=== PATIENT | female | born 1975 | race Caucasian/White ===

== ENCOUNTER 2023-10-19 11:11 | Outpatient (AMB) | payer BC, SELFPAY ==
[2023-10-19 11:16] VITALS: BP 116/70; PULSE 70; O2SAT 99; BMI 41.7
--- NOTE | 2023-10-19 11:16 | MHC.PC.OV ---
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 Patient reports she has numbing with right thigh. Patient reports she would like to discuss labs. Waiter/Waitress Club Required: No Accompanied by: Self / Same As Patient Allergies No Known Allergies Allergy (Verified 10/19/23 11:24) Medication List - Last Reconciled 10/19/23 by Maria E Whittaker MD levothyroxine 125 mcg PO DAILY sertraline 100 mg PO DAILY tirzepatide (weight loss) (Zepbound) 5 mg (0.5 mL) subcut QWEEK Tobacco use date assessed: 10/19/23 Dental Screening Dental Screen Date: 10/19/23 Did you have a dental visit in the last 12 months?: Yes Did you have a dental problem in the last 6 months where you did not have access to dental care?: No Was dental information given to patient?: Patient has dentist HPI HPI Comments History of Present Illness Details The patient is a 48-year-old female with a past medical history of type 2 diabetes,MDD, headaches, hypothyroid, PCOS obesity presenting to follow-up Type 2 diabetes: Last A1C in diabetic range 06/2023. LDL 121. The patient had previously lost over 50 lb with Trulicity however then the medication. Being covered by insurance. Attempted to get majora covered. That was prior to patient being diabetic. Unfortunately she gained all the weight back and now has an A1c in the diabetic range. MDD: Stable on Zoloft. Headache frequency and severity has been stable PCOS: She had successful ongoing weight loss GLP. She was on Trulicity but had ongoing issues with coverage and high. Hypothyroid: Stable on levothyroxine Mammogram-UTD ROS CONSTITUTIONAL: Denies weight loss, fever and chills. HEENT: Denies changes in vision and hearing. RESPIRATORY: Denies SOB and cough. CV: Denies palpitations and CP GI: Denies abdominal pain, nausea, vomiting and diarrhea. : Denies dysuria and urinary frequency. MSK: Denies new myalgia and joint pain. SKIN: Denies rash and pruritus. NEUROLOGICAL: Denies headache PSYCHIATRIC: Denies recent changes in mood. PHYSICAL EXAM: GENERAL: Alert and oriented x 3. NAD EYES: EOMI. Anicteric. HENT: Moist mucous membranes. No scleral icterus. No cervical lymphadenopathy. LUNGS: Clear to auscultation bilaterally. CARDIOVASCULAR: Regular rate and rhythm. No murmur. No JVD. ABDOMEN: Soft, non-tender +bs EXTREMITIES: No edema. Non-tender. SKIN: No rashes or lesions. Warm. NEUROLOGIC: No focal neurological deficits. CN II-XII grossly intact PSYCHIATRIC: Cooperative. Appropriate mood and affect [facility] Medical History Polycystic ovaries Abnormal liver function test Hypothyroid Hemorrhagic cyst of ovary Headache DVT, lower extremity Depression Surgical History No pertinent past surgical history Family History Maternal Grandmother Alzheimer dementia Maternal Grandfather Alzheimer dementia Father Diabetes Social History Household Members: None Housing: House Are you a primary hearing healthcare practitioner to a significant other at home: No Do you presently have visiting nurse or other home services: No 75 years or older and lives alone: No Alcohol intake: current Alcohol intake frequency: a few times a month Patient Tobacco Use Status: Never used Tobacco e-Cigarette/Vaping Use: Never Used service: No Current occupational status: employed Cognitive needs: No Hearing needs: No Vision needs: No Physical exam (Primary Care) Vital Signs: Last Vital Signs Pulse 70 10/19/23 11:16 BP 116/70 10/19/23 11:16 Pulse Ox 99 10/19/23 11:16 Oxygen Delivery Method Room Air 10/19/23 11:16 BMI result Body Mass Index 41.7 Tobacco/Smoking Status: Tobacco use Status Tobacco use date assessed 10/19/23 10/19/23 11:27 Patient Tobacco Use Status Never used Tobacco 10/19/23 11:27 e-Cigarette/Vaping Use Never Used 10/19/23 11:27 Assessment and Plan Assessment & Plan (1) MDD (major depressive disorder), recurrent, in partial remission: Code(s): F33.41 - Major depressive disorder, recurrent, in partial remission Plan: Stable on zoloft (2) Hyperlipidemia: Code(s): E78.5 - Hyperlipidemia, unspecified Qualifiers: Hyperlipidemia type: mixed hyperlipidemia Qualified Code(s): E78.2 - Mixed hyperlipidemia Plan: Efforts toward weight loss. GLP ordered in setting of diabetes and weight gain (3) Type 2 diabetes mellitus: Code(s): E11.9 - Type 2 diabetes mellitus without complications Qualifiers: Diabetes mellitus director long term care insulin use: without fci use Diabetes mellitus complication status: with hyperglycemia Qualified Code(s): E11.65 - Type 2 diabetes mellitus with hyperglycemia Plan: Start GLP. Did really well with this medication Plan Labs in 3 months. Return in six months Orders: Orders Hemoglobin A1c Today E11.9 - Type 2 diabetes mellitus without complications Comprehensive Met. Panel Today E11.9 - Type 2 diabetes mellitus without complications Lipid Panel Today E11.9 - Type 2 diabetes mellitus without complications Microalbumin, Random (w Creat) Today E11.9 - Type 2 diabetes mellitus without complications US soft tiss head and/or neck Today E04.1 - Nontoxic single thyroid nodule Medications: New ondansetron HCl 4 mg PO Q8H PRN 60 tabs 3RF nausea and vomiting sertraline 100 mg PO DAILY 30 tabs 0RF levothyroxine 125 mcg PO DAILY 90 days 90 caps 3RF tirzepatide (Mounjaro) 5 mg (0.5 mL) subcut QWEEK 6 mL 3RF Coding Level of Care Code Est Pt Level 5 (12845) Diagnoses MDD (major depressive disorder), recurrent, in partial remission F33.41 Mixed hyperlipidemia E78.2 Hyperlipidemia type: mixed hyperlipidemia Type 2 diabetes mellitus with hyperglycemia, without long-term current use of insulin E11.65 Diabetes mellitus fci insulin use: without director long term care use Diabetes mellitus complication status: with hyperglycemia
== END 2023-10-19 12:09 | disposition home or self-care (01) ==
PROVIDERS: Visit Provider Internal Medicine
DX: E11.65 Type 2 diabetes mellitus with hyperglycemia (principal); F33.41 Major depressive disorder, recurrent, in partial remission; E78.2 Mixed hyperlipidemia
CPT/HCPCS: 99214

== ENCOUNTER 2023-11-10 14:57 | Outpatient (REF) | payer BC, SELFPAY ==
[2023-11-10 15:59] LABS: Estimated Average Glucose 97 mg/dL
[2023-11-10 16:15] LABS: Alanine Aminotransferase 13 U/L (0-31); Albumin Level 3.9 g/dL (3.5-5.0); Alkaline Phosphatase 58 U/L (39-117); Anion Gap 11 (12-20); Aspartate Amino Transferase 12 U/L (5-31); Bilirubin Total 0.3 mg/dL (0.0-1.0); Blood Urea Nitrogen 16 mg/dL (9-16); Calcium 9.6 mg/dL (8.4-10.2); Carbon Dioxide 26 mmol/L (22-29); Chloride 104 mmol/L (96-108); Cholesterol 246 mg/dL (<200); Estimated Glomerular Filt Rate > 60; Glucose Random 78 mg/dL (60-115); HDL Cholesterol 48 mg/dL (>40); LDL Cholesterol Calculated 122 mg/dL (<100); Sodium 137 mmol/L (135-145); Total Protein 7.2 g/dL (6.5-8.0); Triglycerides 384 mg/dL (<150)
[2023-11-10 16:59] LABS: Microalbum/Creatinine Ratio Ur 4.2 ug/mg cr (<30)
== END 2023-11-10 14:58 | disposition home or self-care (01) ==
LOC: HO.LAB 14:57
PROVIDERS: PCP Internal Medicine; Visit Provider Internal Medicine
DX: E11.9 Type 2 diabetes mellitus without complications (principal)
CPT/HCPCS: 36415; 80053; 80061; 82043; 82570; 83036

== ENCOUNTER 2024-01-31 14:43 | Outpatient (REF) | payer BC, SELFPAY ==
[2024-01-31 16:03] LABS: Estimated Average Glucose 97 mg/dL; Hemoglobin A1C 102.8035 umol/L; Total Hemoglobin (HGBA1C) 3276.8183 umol/L
[2024-01-31 16:38] LABS: Anion Gap 11 (12-20); Blood Urea Nitrogen 14 mg/dL (9-16); Calcium 9.7 mg/dL (8.4-10.2); Carbon Dioxide 29 mmol/L (22-29); Chloride 103 mmol/L (96-108); Estimated Glomerular Filt Rate > 60; Glucose Random 73 mg/dL (60-115); Potassium 3.6 mmol/L (3.3-5.1); Sodium 139 mmol/L (135-145)
== END 2024-01-31 14:44 | disposition home or self-care (01) ==
LOC: HO.LAB 14:43
PROVIDERS: PCP Internal Medicine; Visit Provider Internal Medicine
DX: E28.2 Polycystic ovarian syndrome (principal); R73.09 Other abnormal glucose
CPT/HCPCS: 36415; 80048; 83036

== ENCOUNTER 2024-09-28 08:24 | Outpatient (AMB) | payer BC, SELFPAY ==
--- NOTE | 2024-09-28 08:32 | MHC.PC.OV ---
Vital Signs 09/28/24 08:38 Height 5 ft 4 in Weight 244 lb BMI 41.9 BP 112/70 Blood Pressure Location Rt brachial Position Sitting Pulse 77 Pulse Source Pulse Oximeter Temp 97.8 F Temp Source Temporal Artery Scan Pulse Oximetry (%) 97 Oxygen Delivery Method Room Air Intake Visit Reasons: CPE Intake Note: Heather presents in the office today for her annual physical. Patient has outstanding labs. Allergies No Known Allergies Allergy (Verified 09/28/24 08:35) Tobacco use date assessed: 09/28/24 Dental Screening Dental Screen Date: 09/28/24 Did you have a dental visit in the last 12 months?: Yes Did you have a dental problem in the last 6 months where you did not have access to dental care?: No Was dental information given to patient?: Patient has dentist HPI HPI Comments History of Present Illness Details 49-year-old female with a past medical history of impaired fasting glucose, thyroid nodule, hyperlipidemia, hypothyroid, major depression and polycystic ovaries presents for physical exam. Her current medications include sertraline and levothyroxine. She is compliant with the medicines. Her insurance stopped covering GLP 1, and she gained weight back. BMI 41.9. No known allergies to medicines. She is following a low carbohydrate low sugar diet and never drinks alcohol excessively. Admits she does need to exercise more. She has pending orders for blood work. She will schedule an systems eng appointment. Refer to Gastroenterology for colonoscopy. Mammogram ordered. She sees [facility] for skin exams. Denies history of skin malignancy. ROS: Constitutional: No unexplained weight loss, fever, chills, fatigue or night sweats. Eyes: No vision changes, blurry vision, double vision, eye pain, eye redness, eye discharge. ENT: No hearing loss, sneezing, congestion, runny nose or sore throat. Respiratory: No shortness of breath, cough or sputum production. Cardiovascular: No chest pain, chest pressure or chest discomfort. No palpitations or pedal edema. Gastrointestinal: No anorexia, nausea, vomiting or diarrhea. No abdominal pain or blood in stool. Genitourinary: No dysuria, hematuria, urinary frequency. Neurologic: No headache, dizziness, syncope, unilateral weakness, ataxia, numbness or tingling in the extremities. Musculoskeletal: No muscle pain, back pain, joint pain or swelling. Hematologic/Lymphatics: No bleeding or bruising. No painful lymph nodes. Skin: No rash . Endocrine: No cold or heat intolerance. No polyuria or polydipsia. Psychiatric: No SI/HI. Physical exam: Constitutional: Alert, in no distress. Head: Normocephalic. Eyes: Pupils are equal, round and reactive to light. Extraocular muscles intact. Ear, Nose and Throat: Canals clear. TMs normal. Normal nasal mucosa. No nasal discharge. No oral lesions. Neck: Supple, Full range of motion. No lymphadenopathy. No palpable thyroid masses. Respiratory: Clear to auscultation. Cardiovascular: S1 S2 regular. No murmurs. No carotid bruits. Gastrointestinal: Abdomen soft, non-tender, non-distended. Normal bowel sounds. No palpable masses. Neurologic: No focal neurological deficits. Symmetric patellar reflexes. Moves all extremities spontaneously. Sensation intact bilaterally. Skin: No rashes Musculoskeletal: No gross deformities. Normal range of motion. Extremities: Warm and well perfused. No clubbing, cyanosis or edema. Intact peripheral pulses bilaterally. Psychiatric: Normal mood and affect [facility] Medical History (Updated 09/28/24 @ 09:09 by JEROME Chiu) Routine physical examination Polycystic ovaries Abnormal liver function test Hypothyroid Hemorrhagic cyst of ovary Headache DVT, lower extremity Depression Surgical History No pertinent past surgical history Family History (Updated 09/28/24 @ 08:38 by Blanche Patel MA) Maternal Grandmother Alzheimer dementia Maternal Grandfather Alzheimer dementia Father Diabetes Social History (Updated 09/28/24 @ 08:38 by Blanche Patel MA) Household Members: None Housing: House Are you a primary small animal caretaker to a significant other at home: No Do you presently have visiting nurse or other home services: No 75 years or older and lives alone: No Alcohol intake: current Alcohol intake frequency: a few times a month Patient Tobacco Use Status: Never used Tobacco e-Cigarette/Vaping Use: Never Used Second Hand Smoke Exposure: No Use of substances other than those prescribed or required for medical reasons: No service: No Current occupational status: employed Cognitive needs: No Hearing needs: No Vision needs: No Questionnaire PHQ-9 Over the last 2 weeks, how often have you been bothered by any of the following problems? 1. Little interest or pleasure in doing things: not at all 2. Feeling down, depressed, or hopeless: not at all 3. Trouble falling or staying asleep, or sleeping too much: several days 4. Feeling tired or having little energy: several days 5. Poor appetite or overeating: several days 6. Feeling bad about yourself - or that you are a failure or have let yourself or your family down: not at all 7. Trouble concentrating on things, such as reading the newspaper or watching television: not at all 8. Moving or speaking so slowly that other people could have noticed. Or the opposite - being so fidgety or restless that you have been moving around a lot more than usual: not at all 9. Thoughts that you would be better off or of hurting yourself in some way: not at all Total score: 3 Depression Screening Interpretation: Negative Depression Screening Done: Yes 30673 - PHQ-9 Billing: Yes Source: Developed by Drs. Nilson Mccann, Brooke Barton, Uche Bajwa and colleagues, with an educational gladis from [employer]. Thrive Questionnaire Date Thrive assessed: 09/28/24 I am a: Patient What is your living situation today?: I have a steady place to live Within the past 12 months, did the food you bought not last and you didn't have the money to get more?: Never true Within the past 12 months, did you worry whether your food would run out before you got money to buy more?: Never true Do you have trouble paying for medicines?: No Do you have trouble getting transportation to medical appointments?: No Do you have trouble paying your heating and electricity bill?: No Do you have trouble taking care of your child, family member or friend?: No Do you have trouble with day-to-day activities such as bathing, preparing meals, shopping, managing finances, etc.?: No Are you currently unemployed and looking for a job?: No Are you interested in more education?: Yes Please select the resources that you would like help with: Education Currently or been in a relationship where the following occur: No concerns reported THRIVE Score: 0 AUDIT C Alcohol Use Questionnaire (AUDIT-C) 1. How often do you have a drink containing alcohol?: 2-3 times a week 2. How many drinks containing alcohol do you have on a typical day when you are drinking?: 1 or 2 3. How often do you have six or more drinks on one occasion?: Never Total Score: 3 MAMI-7 AMB Questionnaire MAMI-7 Date MAMI - 7 assessed: 09/28/24 Feeling nervous, anxious, or on edge: 0 = Not at all Not being able to stop or control worryin = Not at all Worrying too much about different things: 0 = Not at all Trouble relaxin = Not at all Being so restless that it is hard to sit still: 0 = Not at all Becoming easily annoyed or irritable: 1 = Several days Feeling afraid as if something awful might happen: 0 = Not at all Total MAMI-7 score (0-4 normal; 5-9 mild; 10-14 moderate; 15-21 severe): 1 Source: Developed by Drs. Nilson Mccann, Brooke Barton, Uche Bajwa and colleagues, with an educational gladis from [employer]. Physical exam (Primary Care) Vital Signs: Last Vital Signs Temp 97.8 F 09/28/24 08:38 Pulse 77 09/28/24 08:38 BP 112/70 09/28/24 08:38 Pulse Ox 97 09/28/24 08:38 Oxygen Delivery Method Room Air 09/28/24 08:38 BMI result Body Mass Index 41.9 Tobacco/Smoking Status: Tobacco use Status Tobacco use date assessed 09/28/24 09/28/24 08:34 Patient Tobacco Use Status Never used Tobacco 09/28/24 08:38 e-Cigarette/Vaping Use Never Used 09/28/24 08:38 PHQ-9: PHQ-9 Score PHQ-9: Total score 3 09/28/24 08:34 Depression Screening Interpretation: Negative Thrive Assessment: Date of Thrive Assessment Date Thrive assessed 09/28/24 09/28/24 08:34 Currently or been in a relationship where the following occur: No concerns reported Coding Level of Care Code Est Pt Prev Care 40-64y(65085) Diagnoses Hypothyroid E03.9 Thyroid nodule E04.1 Obesity, Class III, BMI 40-49.9 (morbid obesity) E66.01 Impaired glucose metabolism R73.09 MDD (major depressive disorder), recurrent, in partial remission F33.41 Routine physical examination Z00.00 Additional Codes PHQ-9 - 02386 - PHQ-9 Billing: Yes ([id number]) Assessment & Plan Assessment & Plan (1) Hypothyroid: Code(s): E03.9 - Hypothyroidism, unspecified Category: Medical Plan: Check TSH. Continue levothyroxine. (2) Thyroid nodule: Code(s): E04.1 - Nontoxic single thyroid nodule Category: Medical Plan: Thyroid ultrasound ordered. (3) Obesity, Class III, BMI 40-49.9 (morbid obesity): Code(s): E66.01 - Morbid (severe) obesity due to excess calories Category: Medical Plan: Lifestyle modifications reviewed. Given history of PCOS and insulin resistance trial of metformin extended release 500 mg daily. Side effects reviewed. (4) Impaired glucose metabolism: Code(s): R73.09 - Other abnormal glucose Category: Medical Plan: See above. Check A1c. (5) MDD (major depressive disorder), recurrent, in partial remission: Code(s): F33.41 - Major depressive disorder, recurrent, in partial remission Category: Medical Plan: Continue sertraline. (6) Routine physical examination: Code(s): Z00.00 - Encounter for general adult medical examination without abnormal findings Category: Medical Plan: Patient is seen today for a routine physical. As part of this visit we reviewed the following issues, which are considered and essential part of preventative health in this age group: - Breast Cancer screening - Annual Shop Tailor Apprentice exam - Screening for colon cancer - Blood pressure screening annually - Cholesterol screening - Osteoporosis prevention including calcium/vitamin D intake, weight bearing exercise & smoking cessation - Nutritional and exercise counseling - Counseling of injury prevention including fire prevention, smoke alarms and seat belt usage - Screening for depression - Education about skin cancer - Recommendations about immunizations - Recommendation of an eye exam - Screening for substance abuse Plan Follow up in 8 weeks for a medication check. Orders: Orders US thyroid Today E04.1 - Nontoxic single thyroid nodule MM screening mammo BI Today Z12.31 - Encounter for screening mammogram for malignant neoplasm of breast Referrals Gastroenterology Referral Z12.11 - Encounter for screening for malignant neoplasm of colon Medications: New metformin ER 500 mg PO DAILY 90 tabs 0RF Refilled levothyroxine 125 mcg PO DAILY 90 tabs 3RF
[2024-09-28 08:38] VITALS: BP 112/70; PULSE 77; TEMP 36.6; O2SAT 97; BMI 41.9
== END 2024-09-28 09:09 | disposition home or self-care (01) ==
LOC: HO.HMCFM 08:30
PROVIDERS: PCP Internal Medicine; Visit Provider Physician Assistant Medical
DX: Z00.00 Encounter for general adult medical examination without abnormal findings (principal); E66.01 Morbid (severe) obesity due to excess calories; Z68.41 Body mass index [BMI] 40.0-44.9, adult; E03.9 Hypothyroidism, unspecified; E04.1 Nontoxic single thyroid nodule; R73.09 Other abnormal glucose; F33.41 Major depressive disorder, recurrent, in partial remission

== ENCOUNTER → 2024-09-28 08:24 | Outpatient (BNVA) | payer BC, SELFPAY | PROVIDERS: PCP Internal Medicine; Visit Provider Physician Assistant Medical | DX: Z00.00 Encounter for general adult medical examination without abnormal findings (principal); E03.9 Hypothyroidism, unspecified; E04.1 Nontoxic single thyroid nodule; E66.01 Morbid (severe) obesity due to excess calories; Z68.41 Body mass index [BMI] 40.0-44.9, adult; R73.09 Other abnormal glucose; F33.41 Major depressive disorder, recurrent, in partial remission; E28.2 Polycystic ovarian syndrome; Z79.899 Other long term (current) drug therapy; Z13.30 Encounter for screening examination for mental health and behavioral disorders, unspecified; Z13.31 Encounter for screening for depression | CPT/HCPCS: 96127 ==

== ENCOUNTER 2024-09-28 09:19 | Outpatient (REF) | payer BC, SELFPAY ==
[2024-09-28 11:01] LABS: MANUAL DIFF FLAG NO
[2024-09-28 11:04] LABS: Basophils Absolute Auto 0.1 X10*3/uL (0.0-0.2); Basophils Percent Auto 0.6 % (0-2); Eosinophils Absolute Auto 0.2 X10*3/uL (0.0-0.4); Eosinophils Percent Auto 2.1 % (0-4); Hematocrit 40.5 % (37.0-47.0); Hemoglobin 13.8 g/dl (12.0-16.0); Imm Gran Abs Auto 0.04 X10*3/uL (0.00-0.03); Imm Gran Pct Auto 0.5 % (0.0-0.4); Lymphocytes Absolute Auto 2.4 X10*3/uL (1.2-4.9); Lymphocytes Percent Auto 28.4 % (20-40); Mean Corpuscular HGB Conc 34.1 g/dl (31.0-35.0); Mean Corpuscular Hemoglobin 30.4 pg (27.0-33.0); Mean Corpuscular Volume 89.2 fL (80.0-98.0); Mean Platelet Volume 10.5 fL (9.4-12.3); Monocytes Absolute Auto 0.7 X10*3/uL (0.1-1.2); Monocytes Percent Auto 7.7 % (2-11); Neutrophils Absolute Auto 5.2 x10*3/uL (2.0-8.3); Neutrophils Percent Auto 60.7 % (45-73); Platelet Count 335 X10*3/uL (160-400); Red Blood Count 4.54 X10*6/uL (4.20-5.50); Red Cell Distribution Width 12.9 % (11.0-16.0); White Blood Count 8.6 X10*3/uL (4.8-10.8)
[2024-09-28 11:12] LABS: Estimated Average Glucose 105 mg/dL; Hemoglobin A1c % 5.3 % (<6.0); Total Hemoglobin (HGBA1C) 3699.6148 umol/L
[2024-09-28 11:48] LABS: Alanine Aminotransferase 20 U/L (0-31); Albumin Level 4.2 g/dL (3.5-5.0); Alkaline Phosphatase 66 U/L (39-117); Anion Gap 10 (12-20); Aspartate Amino Transferase 19 U/L (5-31); Bilirubin Total 0.3 mg/dL (0.0-1.0); Blood Urea Nitrogen 14 mg/dL (9-16); Calcium 9.7 mg/dL (8.4-10.2); Carbon Dioxide 22 mmol/L (22-29); Chloride 109 mmol/L (96-108); Cholesterol 255 mg/dL (<200); Estimated Glomerular Filt Rate > 60; Glucose Fasting 93 mg/dL (60-99); HDL Cholesterol 52 mg/dL (>40); LDL Cholesterol Calculated 142 mg/dL (<100); Potassium 4.2 mmol/L (3.3-5.1); Sodium 137 mmol/L (135-145); Total Protein 7.5 g/dL (6.5-8.0); Triglycerides 307 mg/dL (<150)
[2024-09-28 12:01] LABS: Creatinine Urine 134.41 mg/dL; Microalbumin Urine < 5.0 mg/L
[2024-09-28 12:07] LABS: TSH reflex Free T4 6.08 uIU/mL (0.32-4.0)
[2024-09-28 12:39] LABS: Free T4 (Free Thyroxine) 1.01 ng/dL (0.71-1.85)
== END 2024-09-28 09:20 | disposition home or self-care (01) ==
LOC: HO.WFDLDS 09:19
PROVIDERS: Visit Provider Physician Assistant
DX: E66.01 Morbid (severe) obesity due to excess calories (principal); R73.09 Other abnormal glucose; E03.9 Hypothyroidism, unspecified; E78.2 Mixed hyperlipidemia; R73.01 Impaired fasting glucose
CPT/HCPCS: 36415; 80053; 80061; 82043; 82570; 83036; 84439; 84443; 85025

== ENCOUNTER 2024-10-17 12:58 | Outpatient (REF) | payer BC, SELFPAY ==
--- NOTE | ~2024-10-17 | US_ITS ---
EXAMINATION: US THYROID HISTORY: E04.1 - Nontoxic single thyroid nodule TECHNIQUE: Real-time grayscale ultrasound imaging was performed and images were reviewed. COMPARISON: There are no prior studies available for comparison. FINDINGS: SIZE: The right thyroid lobe measures 4.7 x 1.9 x 1.6 cm. The left thyroid lobe measures 3.8 x 1.5 x 1.1 cm. The isthmus measures 5 mm. FLOW: Flow to the gland is normal. ECHOGENICITY: The echotexture of the gland is heterogeneous. NODULES: A single discrete nodule is noted as described below: Nodule #: 1 Location: Lower pole of the right thyroid lobe measuring 10 x 12 x 11 mm. Shape: Taller than wide (3 points) Margins: Smooth (0 points) Echotexture: Hypoechoic (2 points) Composition: Mostly solid (2 points) Calcifications: None (0 points) Total points: 7 TIRADS: TR5: Highly suspicious. US/US thyroid IMPRESSION: Highly suspicious nodule at the lower pole of the right thyroid lobe as described above. According to ACR TI-RADS guidelines below, ultrasound-guided fine-needle aspiration is recommended. ACR TI-RADS Guidelines TR1 (0 points): Benign, No follow-up or biopsy required TR2 (2 points): Not Suspicious, No biopsy or follow up indicated TR3 (3 points): Mildly Suspicious, FNA if >= 2.5 cm, Follow if >= 1.5 cm TR4 (4-6 points): Moderately Suspicious, FNA if >= 1.5 cm, Follow if >= 1.0 cm TR5 (>=7 points): Highly Suspicious, FNA if >= 1.0 cm, Follow if >= 0.5 cm Electronically signed by: Nilson Morrison MD 10/17/2024 01:48 PM EDT
== END 2024-10-17 12:59 | disposition home or self-care (01) ==
LOC: HO.US 12:58
PROVIDERS: PCP Internal Medicine; Visit Provider Physician Assistant Medical
DX: E04.1 Nontoxic single thyroid nodule (principal)
CPT/HCPCS: 76536

== ENCOUNTER → 2024-10-17 12:59 | Outpatient (BNV) | payer BC, SELFPAY | PROVIDERS: PCP Internal Medicine; Visit Provider Radiology Diagnostic Radiology | DX: E04.1 Nontoxic single thyroid nodule (principal) | CPT/HCPCS: 76536 ==

== ENCOUNTER 2024-11-01 14:05 | Outpatient (AMB) | payer BC, SELFPAY ==
[2024-11-01 14:13] VITALS: BP 114/72; PULSE 87; O2SAT 96; BMI 42.5
--- NOTE | 2024-11-01 14:13 | MHC.OFFVIS ---
Vital Signs 11/01/24 14:13 Height 5 ft 4 in Weight 247 lb 12.793 oz BMI 42.5 BP 114/72 Blood Pressure Location Lt brachial Position Sitting Pulse 87 Pulse Source Pulse Oximeter Pulse Oximetry (%) 96 Oxygen Delivery Method Room Air Intake Visit Reasons: Nontoxic single thyroid nodule Intake Note: New patient present today for Nontoxic single thyroid nodule. Clinical Appeals Reviewer Required: No Accompanied by: Self / Same As Patient Allergies No Known Allergies Allergy (Verified 11/01/24 14:18) Medication List - Last Reconciled 11/01/24 by Jo Ann Morales MD levothyroxine (Synthroid) 137 mcg PO DAILY metformin ER 500 mg PO DAILY sertraline 100 mg PO DAILY HPI Comments Details: 49-year-old female coming in today to establish care for solitary right-sided thyroid nodule. Also has a history of hypothyroidism. Diagnosed 2020, has never had a biopsy. This was diagnosed at [facility]. PCP was following. Hypothyroidism diagnosed in 30s. Levothyroxine 137 mcg daily , takes on an empty stomach , but waits usually 20 to 30 mins for breakfast Was increased from 125 mcg daily whihc she was on for sometime up until September 2024 when TSH was 6.08 on 09/28/24 Ultrasound thyroid 10/17/2024: I reviewed the images myself which showed a right lower pole 1.2 cm solid hypoechoic taller than wide TR 5 category nodule. Meets criteria for FNA. Otherwise her gland is heterogenous with normal vascularity. Patient currently denies heat or cold intolerance, hair loss, palpitation, anxiety, weight changes, mood changes, low energy, changes in appearance of eyes or vision changes, tremors, increased diaphoresis or dry skin. ? Some intermittent diarrhea and constipation with metformin Periods regular, LMP : due to have one now Patient denies any difficulty swallowing, pain on swallowing or voice changes or difficulty breathing. Patient denies any history of childhood neck radiation. Denies having ever used lithium, amiodarone or biotin supplements. Patient denies any family history of thyroid cancer. Paternal grandfather had hypothyroidism. 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 COMPARISON: There are no prior studies available for comparison. FINDINGS: SIZE: The right thyroid lobe measures 4.7 x 1.9 x 1.6 cm. The left thyroid lobe measures 3.8 x 1.5 x 1.1 cm. The isthmus measures 5 mm. FLOW: Flow to the gland is normal. ECHOGENICITY: The echotexture of the gland is heterogeneous. NODULES: A single discrete nodule is noted as described below: Nodule #: 1 Location: Lower pole of the right thyroid lobe measuring 10 x 12 x 11 mm. Shape: Taller than wide (3 points) Margins: Smooth (0 points) Echotexture: Hypoechoic (2 points) Composition: Mostly solid (2 points) Calcifications: None (0 points) Total points: 7 TIRADS: TR5: Highly suspicious. US/US thyroid IMPRESSION: Highly suspicious nodule at the lower pole of the right thyroid lobe as described above. According to ACR TI-RADS guidelines below, ultrasound-guided fine-needle aspiration is recommended. [facility] Medical History (Updated 09/28/24 @ 09:09 by JEROME Chiu) Routine physical examination Polycystic ovaries Abnormal liver function test Hypothyroid Hemorrhagic cyst of ovary Headache DVT, lower extremity Depression Surgical History No pertinent past surgical history Family History Maternal Grandmother Alzheimer dementia Maternal Grandfather Alzheimer dementia Father Diabetes Social History Household Members: None Housing: House Are you a primary career services manager to a significant other at home: No Do you presently have visiting nurse or other home services: No 75 years or older and lives alone: No Alcohol intake: current Alcohol intake frequency: a few times a month Patient Tobacco Use Status: Never used Tobacco e-Cigarette/Vaping Use: Never Used Second Hand Smoke Exposure: No service: No Current occupational status: employed Cognitive needs: No Hearing needs: No Vision needs: No Physical Exam Vital Signs: Last Vital Signs Pulse 87 11/01/24 14:13 BP 114/72 11/01/24 14:13 Pulse Ox 96 11/01/24 14:13 Oxygen Delivery Method Room Air 11/01/24 14:13 BMI result Body Mass Index 42.5 Assessment & Plan Assessment & Plan (1) Thyroid nodule: Code(s): E04.1 - Nontoxic single thyroid nodule Category: Medical Plan: 49-year-old female coming in today for initial evaluation of solitary thyroid nodule. This was initially diagnosed in 2020 per patient, no FNA biopsy done as it was too close to her carotid. No compressive symptoms. Ultrasound thyroid 10/17/2024: I reviewed the images myself which showed a right lower pole 1.2 cm solid hypoechoic taller than wide TR 5 category nodule. Meets criteria for FNA. Otherwise her gland is heterogenous with normal vascularity. I explained that it is common to have thyroid nodules. About 95% of the time these nodules are benign. However if the nodule is > 1 cm in size or suspicious on ultrasound then a fine need aspiration biopsy is recommended. We discussed that a FNAB involves 4-5 passes with a small gauge needle and material obtained is sent off for cytology.If the cytopathology is benign then the nodule will be followed annually with repeat ultrasounds. However if it is suspicious or malignant, we will need to discuss further management. Indeterminate cytology can be further investigated with repeat FNA, genetic testing or empiric lobectomy. Malignant cytology is managed with either lobectomy or total thyroidectomy. We discussed briefly that thyroid cancer is, in most patients, an indolent disease that does not affect mortality. We will arrange for FNA of the right lower pole 1.2 cm thyroid nodule at next available opening and patient will follow up with me in clinic thereafter for results and further decision making. She also does have history of hypothyroidism, PCP's managing. Dose of levothyroxine was recently increased in September from 125 mcg daily to 137 mcg daily. Patient will have repeat blood work in 6 weeks. Plan: -scheduled for FNA of the right lower pole 1.2 cm thyroid nodule and a follow up 2 weeks after to discuss results Plan I spent 45 minutes in reviewing the record, seeing the patient and documenting in the medical record. Orders: Orders US biopsy thyroid Today E04.1 - Nontoxic single thyroid nodule Coding Level of Care Code New Pt Level 4 (46029) Diagnoses Thyroid nodule E04.1 Time Spent (min) 45
--- OUTSIDE RECORDS SUMMARY | 2024-11-01 14:49 | XMS_ITS ---
Author Name Zach Rodriguez Address Unknown Organization [facility] Care Team Providers Care Brine Well Operator Name Role Phone Unavailable Primary Care Physician Unavailab le History Of Present Illness No Data Medications Medication Generic Name RxNorm Strength Strength Unit Route Dose Dose Form Frequency Date Started Date Ended Status Indication Sig metronidazo le metronid azole 265615 0.75 % Topica l gel 02/04/20 24 active Appl y BID to face for arnel cea main elkin nce levothyroxi ne levothyr oxine 375484 125 mcg Oral table t active ondansetron ondanset jacob Oral active sertraline sertrali ne Oral active Wegovy semaglut shoaib (weight loss) Subcut aneous active active Problems Problem Code Type Status Date of Diagnosis Da te of Resolution Patient encounter status (finding) 383892308(SN OMED) Diagnosis active 10/27/2024 Patient encounter status (finding) 495555375(SN OMED) Diagnosis active 08/25/2024 Patient encounter status (finding) 093792666(SN OMED) Diagnosis active 06/23/2024 Patient encounter status (finding) 766416452(SN OMED) Diagnosis active 05/19/2024 Patient encounter status (finding) 757820639(SN OMED) Diagnosis active 03/24/2024 Patient encounter status (finding) 522388238(SN OMED) Diagnosis active 02/25/2024 Rosacea (disorder) 489407388(SN OMED) Diagnosis active 02/04/2024 Melanocytic nevus of trunk (disorder) 795508053(SN OMED) Diagnosis active 02/04/2024 Seborrheic keratosis (disorder) 853931741(SN OMED) Diagnosis active 02/04/2024 Hemangioma of skin and subcutaneous tissue (disorder) 174572130(SN OMED) Diagnosis active 02/04/2024 Disorder of pigmentation (disorder) 953526755(SN OMED) Diagnosis active 02/04/2024 Hypertrophic condition of skin (disorder) 71866649(SNO MED) Diagnosis active 02/04/2024 Patient encounter status (finding) 413637523(SN OMED) Diagnosis active 02/04/2024 Patient encounter status (finding) 821679445(SN OMED) Diagnosis active 10/05/2023 History of clinical finding in subject (situation) 097543821(SN OMED) Problem active Results No data Encounters Service provided at [facility], [address] [place] [phone]. Office phone number is [phone]. Office fax number is [phone]. Encounter Diagnosis Location Date / Time Type Cosmetic (Z41.9) [facility] 10/27/2024 18:00:00 [facility] Reason For Referral No data Procedures Procedure Date Documentation of past medical history (p rocedure) Documentation of past medical history (p rocedure) Review Of Systems No Data Assessment 1.CosmeticFacial: face; Exfoliation Type - enzyme; Massage - facial massage and hand massage; Treatment Type - Facial; Treatment Serum - Vitamin C; Mask Type - hydrojelly; Extraction - open comedones and milia; Lymphatic Drainage - face; Extraction Method - extractor; Sahni (Use numbers only, no special characters or $) - 75; LED Light - red. Plan of Care Code Detail Instructions 555377 metronidazole 0.75 % topical gel Apply BID to face for rosacea maintenance Instructions No Data Social History Code Activity Start Date End Date [id number] (SNOMED) Never smoker Sex female Sexual orientation Unspecified Gender identity Unspecified Vital Signs No data
== END 2024-11-01 15:01 | disposition home or self-care (01) ==
LOC: HO.ENCR 14:06
PROVIDERS: PCP Internal Medicine; Visit Provider Student in an Organized Health Care Education/Training Program
DX: E04.1 Nontoxic single thyroid nodule (principal)
CPT/HCPCS: 99204

== ENCOUNTER 2024-11-15 15:03 | Outpatient (REF) | payer BC, SELFPAY ==
--- OUTSIDE RECORDS SUMMARY | 2024-11-15 15:33 | XMS_ITS | Encounter Summary ---
Author Organization [facility] Address [address] [place] [address] Care Team Providers Care Hooker Up Name Role Phone Maria E Mcarthur MD Primary Care Provider Cris Gasca, Pcp Primary Care Provider Froylan montes Encounter Details Date Type Department Care Team Description 02/15/2020 Orders Only Medicine/Pediatrics - [address] [id number] Maria E Mcarthur MD Social History Tobacco Use Types Packs/Day Years Used Date Smoking Tobacco: Never Smokeless Tobacco: Never Alcohol Use Standard Drinks/Week Comments Yes 0 (1 standard drink = 0.6 oz pur e alcohol) 1-2x/mo Alcohol Habits Answer Date Recorded How often do you have a drink containing alcohol ? 2-3 times a week 12/07/2019 How many drinks containing a lcohol do you have on a typical day when you are drinking? 1 or 2 12/07/2019 How often do you have six or more drinks on one occasion? Never 12/07/2019 Sex Assigned at Date Recorded Not on file COVID-19 Exposure Response Date Recorded In the last month, have you been in contact with someone who was confirmed or suspected to have Coronavirus / COVID-19? Unable to assess 02/14/2020 10:37 AM EST documented as of this encounter Plan of Treatment Not on file documented as of this encounter Visit Diagnoses Not on filedocumented in this encounter Care Teams Hooker Up Relationship Specialty Start Date End Date Maria E Mcarthur MD PCP - General Internal Medicine 11/20/19 07/22/20 Campos, Pcp PCP - General Internal Medicine 07/23/20 documented as of this encounter
== END 2024-11-15 15:04 | disposition home or self-care (01) ==
LOC: HO.MAMMO 15:03
PROVIDERS: PCP Internal Medicine; Visit Provider Physician Assistant Medical
DX: Z12.31 Encounter for screening mammogram for malignant neoplasm of breast (principal)
CPT/HCPCS: 77063; 77067

== ENCOUNTER → 2024-11-15 15:15 | Outpatient (BNV) | payer BC, SELFPAY | PROVIDERS: PCP Internal Medicine; Visit Provider Radiology Body Imaging | DX: Z12.31 Encounter for screening mammogram for malignant neoplasm of breast (principal) | CPT/HCPCS: 77063; 77067 ==

== ENCOUNTER 2024-11-22 07:56 | Outpatient (REF) | payer BC, SELFPAY ==
--- NOTE | 2024-11-22 08:38 | PM.PROC ---
Brief Operative Note Date of procedure: 11/22/24 Pre-op diagnosis: right lower pole 1.2 cm thyroid nodule FNA biopsy Post-op diagnosis: same Procedure: THYROID FINE NEEDLE ASPIRATION PROCEDURE NOTE ? PROCEDURE PERFORMED: Ultrasound-guided FNA of thyroid nodule ? OPERATORS: Dr. Jo Ann Morales ? INDICATION: right lower pole 1.2 cm thyroid nodule; FNA performed to assess for malignancy ? DESCRIPTION OF PROCEDURE: The indications for FNA (to assess for malignancy) were reviewed with the patient in detail. Potential complications (e.g., bleeding, infection, damage to local structures, absence of clear diagnosis after FNA) were reviewed. Alternatives to FNA including conservative observation or surgery were described. The patient understood and agreed to proceed. This was documented by the signing of the written informed consent form. A time-out was performed to confirm the patient's identity and the site of planned FNA. The nodule of interest was identified using ultrasound (14 MHz linear array probe). The site of FNA was then draped in the usual fashion and carefully cleaned and prepared using alcohol swabs. The skin at the previously-identified site of needle insertion was iced and sprayed with numbing spray. Under ultrasound guidance, _4_ passes were performed using a 1.5-inch, 25-gauge needle, and sample was obtained via capillary action. The needle tip was clearly visualized to be within the nodule at the time of sampling for _3_ of 4__ passes The patient tolerated the procedure well. There were no immediate complications. A small adhesive bandage was applied, and the patient was advised to take acetaminophen (rather than NSAIDs) for any discomfort and to report any signs of inflammation/infection or marked swelling. IMPRESSION: Technically successful ultrasound-guided fine needle aspiration of right lower pole 1.2 cm thyroid nodule . PLAN: The patient was advised that I will provide follow-up regarding the cytology result and any subsequent plans. Jo Ann Morales MD Endocrinology Attending Condition: stable Disposition: same day
== END 2024-11-22 07:57 | disposition home or self-care (01) ==
LOC: HO.US 07:56
PROVIDERS: PCP Internal Medicine; Visit Provider Student in an Organized Health Care Education/Training Program
DX: E04.1 Nontoxic single thyroid nodule (principal)
CPT/HCPCS: 10005; 88173; 88305

== ENCOUNTER → 2024-11-22 07:56 | Outpatient (BNV) | payer BC, SELFPAY | PROVIDERS: PCP Internal Medicine; Visit Provider Student in an Organized Health Care Education/Training Program | DX: E04.1 Nontoxic single thyroid nodule (principal) | CPT/HCPCS: 10005 ==

== ENCOUNTER 2024-11-27 09:16 | Outpatient (REF) | payer BC, SELFPAY | END 2024-11-27 09:17 | disposition home or self-care (01) | LOC: HO.LAB 09:16 | PROVIDERS: PCP Internal Medicine; Visit Provider Physician Assistant | DX: E03.9 Hypothyroidism, unspecified (principal) | CPT/HCPCS: 36415; 84443 ==

== ENCOUNTER 2024-12-06 15:23 | Outpatient (AMB) | payer BC, SELFPAY ==
--- NOTE | 2024-12-06 15:24 | A.OFFVIS_ITS ---
Vital Signs 3 12/06/24 15:25 Height 5 ft 4 in Weight 252 lb 10.396 oz BMI 43.4 BP 108/72 Blood Pressure Location Lt brachial Position Sitting Pulse 86 Pulse Source Pulse Oximeter Pulse Oximetry (%) 97 Oxygen Delivery Method Room Air Intake Visit Reasons: Biopsy f/u Intake Note: Patient present today for biopsy results. Leach Cell Operator Required: No Accompanied by: Self / Same As Patient Allergies No Known Allergies Allergy (Verified 12/06/24 15:30) Medication List - Last Reconciled 12/06/24 by Jo Ann Morales MD levothyroxine (Synthroid) 137 mcg PO DAILY metformin ER 500 mg PO DAILY sertraline 100 mg PO DAILY HPI Comments Details: 49-year-old female coming in today to for follow up for solitary right-sided thyroid nodule. Also has a history of hypothyroidism. Diagnosed 2020, has never had a biopsy. This was diagnosed at [facility]. PCP was following. Hypothyroidism diagnosed in 30s. Levothyroxine 137 mcg daily , takes on an empty stomach , but waits usually 20 to 30 mins for breakfast Was increased from 125 mcg daily [facility] she was on for sometime up until September 2024 when TSH was 6.08 on 09/28/24 Ultrasound thyroid 10/17/2024: I reviewed the images myself which showed a right lower pole 1.2 cm solid hypoechoic taller than wide TR 5 category nodule. Meets criteria for FNA. Otherwise her gland is heterogenous with normal vascularity. Patient currently denies heat or cold intolerance, hair loss, palpitation, anxiety, weight changes, mood changes, low energy, changes in appearance of eyes or vision changes, tremors, increased diaphoresis or dry skin. ? Some intermittent diarrhea and constipation with metformin Periods regular, LMP : due to have one now Patient denies any difficulty swallowing, pain on swallowing or voice changes or difficulty breathing. Patient denies any history of childhood neck radiation. Denies having ever used lithium, amiodarone or biotin supplements. Patient denies any family history of thyroid cancer. Paternal grandfather had hypothyroidism. Never smoke Alcohol use: a glass of wine twice a week No drug use Works as a paraprofessional education assistant in a school Interval history 11/27/2024: TSH 1.69 11/22/2024: Status post FNA of the right lower pole 1.2 cm nodule which came back as nondiagnostic, [place] category 1 Physical exam General: sitting comfortably in no acute distress HEENT: normocephalic/atraumatic, Neck: supple, symmetrical, no thyromegaly Cardiac: normal heart sounds Pulm: normal breath sounds B/L, no added breath sounds Abd: not distended, no tenderness Extremities: no edema, no signs of myxedema Laboratory Tests 09/28/24 09:22 TSH 6.08 H Free T4 1.01 Laboratory Tests 11/27/24 09:26 TSH 1.69 EXAMINATION: US THYROID 10/17/2024 HISTORY: E04.1 - Nontoxic single thyroid nodule TECHNIQUE: Real-time grayscale ultrasound imaging was performed and images were reviewed. COMPARISON: There are no prior studies available for comparison. FINDINGS: SIZE: The right thyroid lobe measures 4.7 x 1.9 x 1.6 cm. The left thyroid lobe measures 3.8 x 1.5 x 1.1 cm. The isthmus measures 5 mm. FLOW: Flow to the gland is normal. ECHOGENICITY: The echotexture of the gland is heterogeneous. NODULES: A single discrete nodule is noted as described below: Nodule #: 1 Location: Lower pole of the right thyroid lobe measuring 10 x 12 x 11 mm. Shape: Taller than wide (3 points) Margins: Smooth (0 points) Echotexture: Hypoechoic (2 points) Composition: Mostly solid (2 points) Calcifications: None (0 points) Total points: 7 TIRADS: TR5: Highly suspicious. US/US thyroid IMPRESSION: Highly suspicious nodule at the lower pole of the right thyroid lobe as described above. According to ACR TI-RADS guidelines below, ultrasound-guided fine-needle aspiration is recommended. [facility] Medical History (Updated 11/27/24 @ 14:51 by JEROME Chiu) Dense breasts Routine physical examination Polycystic ovaries Abnormal liver function test Hypothyroid Hemorrhagic cyst of ovary Headache DVT, lower extremity Depression Surgical History No pertinent past surgical history Family History Maternal Grandmother Alzheimer dementia Maternal Grandfather Alzheimer dementia Father Diabetes Social History Household Members: None Housing: House Are you a primary child care sitter to a significant other at home: No Do you presently have visiting nurse or other home services: No 75 years or older and lives alone: No Alcohol intake: current Alcohol intake frequency: a few times a month Patient Tobacco Use Status: Never used Tobacco e-Cigarette/Vaping Use: Never Used Second Hand Smoke Exposure: No service: No Current occupational status: employed Cognitive needs: No Hearing needs: No Vision needs: No Physical Exam Vital Signs: Last Vital Signs Pulse 86 12/06/24 15:25 BP 108/72 12/06/24 15:25 Pulse Ox 97 12/06/24 15:25 Oxygen Delivery Method Room Air 12/06/24 15:25 BMI result Body Mass Index 43.4 Assessment & Plan Assessment & Plan (1) Thyroid nodule: Code(s): E04.1 - Nontoxic single thyroid nodule Category: Medical Plan: 49-year-old female coming in today for initial evaluation of solitary thyroid nodule. This was initially diagnosed in 2020 per patient, no FNA biopsy done as it was too close to her carotid. No compressive symptoms. Ultrasound thyroid 10/17/2024: I reviewed the images myself which showed a right lower pole 1.2 cm solid hypoechoic taller than wide TR 5 category nodule. Meets criteria for FNA. Otherwise her gland is heterogenous with normal vascularity. 11/27/2024: TSH 1.69 11/22/2024: Status post FNA of the right lower pole 1.2 cm nodule which came back as nondiagnostic, [place] category 1 I discussed with the patient nondiagnostic results yield a 5-20% risk of malignancy. However during the ultrasound while I was doing her biopsy her nodule did not appear taller than wide to me, and was super small. I did not see any calcifications. At this time we discussed both options of repeating a biopsy versus ultrasound surveillance. We agreed upon doing ultrasound surveillance. She also does have history of hypothyroidism, PCP's managing. Dose of levothyroxine was recently increased in September from 125 mcg daily to 137 mcg daily. Most recent TSH 11/27/2024 at 1.69 which is. Plan: -ultrasound of the thyroid ordered for October 2025 prior to follow up in November 2025 -continue levothyroxine 137 mcg daily -ordered TSH with reflex free T4 to be done prior to follow up in 1 year Plan See above Orders: Orders 2 TSH reflex Free T4 10/22/25 E04.1 - Nontoxic single thyroid nodule US thyroid 10/22/25 E04.1 - Nontoxic single thyroid nodule Patient Instructions: Do ultrasound of the thyroid in October 2025 , someone will call you to schedule this , please make sure this is done a few weeks prior to your next follow up with me Do thyroid blood work a few days prior to next follow up , orders are in Continue levothyroxine 137 mcg daily Coding Level of Care Code Est Pt Level 3 (78679) Diagnoses Thyroid nodule E04.1
[2024-12-06 15:25] VITALS: BP 108/72; PULSE 86; O2SAT 97; BMI 43.4
== END 2024-12-06 16:04 | disposition home or self-care (01) ==
LOC: HO.ENCR 15:23
PROVIDERS: PCP Internal Medicine; Visit Provider Student in an Organized Health Care Education/Training Program
DX: E04.1 Nontoxic single thyroid nodule (principal)
CPT/HCPCS: 99213

== ENCOUNTER 2025-01-12 07:59 | Outpatient (REF) | payer BC, SELFPAY ==
--- NOTE | ~2025-01-12 | US_ITS ---
EXAMINATION: US SCREENING ULTRASOUND BREAST, BILATERAL CLINICAL INFORMATION: Dense breasts on mammography. Screening ultrasound. COMPARISON: [facility] on PACS. TECHNIQUE: Ultrasound is performed using grayscale imaging and color Doppler. Imaging is performed to include the four quadrants and retroareolar region. Both breasts are imaged. FINDINGS: Right breast: There is no suspicious finding by ultrasound. There is no solid mass or focal architectural abnormality. Left breast: There is no suspicious finding by ultrasound. There is no solid mass or focal architectural abnormality. US/US breast BI complete IMPRESSION: No suspicious findings on screening breast ultrasound. ASSESSMENT: Category 1: Negative RECOMMENDATION: 1 year F/U This patient's information was entered into a reminder system with a target due date for their next mammogram. Electronically signed by: Danii Yepez DO 01/15/2025 12:58 PM EDT
[2025-01-12 09:10] LABS: Anion Gap 11 (12-20); Blood Urea Nitrogen 18 mg/dL (9-16); Calcium 9.0 mg/dL (8.4-10.2); Carbon Dioxide 26 mmol/L (22-29); Chloride 107 mmol/L (96-108); Cholesterol 234 mg/dL (<200); Estimated Glomerular Filt Rate > 60; HDL Cholesterol 48 mg/dL (>40); Potassium 4.1 mmol/L (3.3-5.1); Sodium 140 mmol/L (135-145); Triglycerides 189 mg/dL (<150)
== END 2025-01-12 08:00 | disposition home or self-care (01) ==
LOC: HO.MAMMO 07:59
PROVIDERS: Absent Provider Physician Assistant Medical; PCP Internal Medicine; Visit Provider Internal Medicine
DX: R92.30 Dense breasts, unspecified (principal); E78.2 Mixed hyperlipidemia; E03.9 Hypothyroidism, unspecified; E04.1 Nontoxic single thyroid nodule; R73.9 Hyperglycemia, unspecified
CPT/HCPCS: 36415; 76641; 80048; 80061; 83036; 84443

== ENCOUNTER → 2025-01-12 08:30 | Outpatient (BNV) | payer BC, SELFPAY | PROVIDERS: Absent Provider Physician Assistant Medical; PCP Internal Medicine; Visit Provider Internal Medicine | DX: R92.30 Dense breasts, unspecified (principal) | CPT/HCPCS: 76641 ==

== ENCOUNTER 2025-01-17 07:52 | Outpatient (AMB) | payer BC, SELFPAY ==
--- NOTE | 2025-01-17 07:54 | A.OFFVIS_ITS ---
Vital Signs 01/17/25 08:05 Height 5 ft 4 in Weight 246 lb BMI 42.2 BP 123/48 L Blood Pressure Location Lt brachial Position Sitting Pulse 77 Pulse Oximetry (%) 98 Oxygen Delivery Method Room Air Intake Visit Reasons: Colonoscopy Screening Intake Note: Patient new consult for 1st pre Colonoscopy screening. Patient cc: between diarrhea and constipation due Metformin, acid reflux on and off, denies any other GI issues for today. Airplane First [employer] Required: No Accompanied by: Self / Same As Patient Allergies No Known Allergies Allergy (Verified 01/17/25 07:54) Medication List - Last Reconciled 01/17/25 by Ama Puckett CNP cetirizine 10 mg PO DAILY PRN levothyroxine (Synthroid) 137 mcg PO DAILY loratadine 10 mg PO DAILY PRN metformin ER 500 mg PO DAILY sertraline 100 mg PO DAILY HPI HPI Colonoscopy Screening: Details: Patient is a 49-year-old female with PMH of obesity, depression, thyroid disease, headaches. Referred by PCP for pre colonoscopy screening This will be Heather's first colonoscopy, no prior or ongoing stool-based CRC screening. She reports recent changes in bowel habits since initiation of metformin approximately 2?3 months ago. Stool pattern is variable, with intermittent constipation (lasting up to a day) followed by episodes of diarrhea, as well as days of normal, formed stools. Prior to metformin, bowel movements were regular and formed, typically occurring in the morning. Patient associates changes with the start of metformin (500 mg ER daily), prescribed for either borderline elevations in fasting glucose (recent A1c 5.4%) or as an alternative to discontinued weight loss medications. Longstanding, mild, intermittent GERD symptoms (heartburn without regurgitation or dysphagia), generally managed with OTC Prilosec twice/month; symptoms occasionally triggered by dietary indiscretions (e.g., hot sauce), with partial benefit from conservative measures (left-sided sleeping, OTC antacids). Maintains robust appetite. Reports stable weight after prior loss while on weight loss injections; weight regain correlates with drug cessation. Relevant comorbidities include hypothyroidism (on levothyroxine) and depression/anxiety (on sertraline). Allergic rhinitis managed with rotating OTC antihistamines. No prior GI cancers, no concerning family history. Patient denies: fever/chills, n/v, appetite changes, regurgitation,dysphasia, unintentional wt loss, ab pain or melena/hematochezia. Social hx: -ETOH use, 1 glass wine with dinner 1?2x/week -denies recreational drug use -non-smoker - family hx as below -denies personal hx of CA -denies significant cardiopulmonary history -tolerated anesthesia in the past without difficulty [facility] Medical History (Updated 01/17/25 @ 09:00 by Ama Puckett CNP) Change in stool Acid reflux Colon cancer screening Dense breasts Routine physical examination Polycystic ovaries Abnormal liver function test Hypothyroid Hemorrhagic cyst of ovary Headache DVT, lower extremity Depression Surgical History No pertinent past surgical history Family History Maternal Grandmother Alzheimer dementia Maternal Grandfather Alzheimer dementia Father Diabetes Social History Household Members: None Housing: House Are you a primary healthcare facility administrator to a significant other at home: No Do you presently have visiting nurse or other home services: No 75 years or older and lives alone: No Alcohol intake: current Alcohol intake frequency: a few times a month Patient Tobacco Use Status: Never used Tobacco e-Cigarette/Vaping Use: Never Used Second Hand Smoke Exposure: No service: No Current occupational status: employed Cognitive needs: No Hearing needs: No Vision needs: No Review of Systems Const Reports as per HPI ENT Reports as per HPI Card Reports as per HPI Resp Reports as per HPI GI Reports as per HPI Reports as per HPI Physical Exam Vital Signs: Last Vital Signs Pulse 77 01/17/25 08:05 BP 123/48 L 01/17/25 08:05 Pulse Ox 98 01/17/25 08:05 Oxygen Delivery Method Room Air 01/17/25 08:05 BMI result Body Mass Index 42.2 Const General: healthy appearing, no acute distress and well developed Nutritional Appearance: average body habitus Orientation/consciousness: patient oriented x3 HEENT Head: Yes normal to inspection, Yes normocephalic and Yes atraumatic Face and sinus: Yes normal facial exam Eyes General: appearance normal, both eyes and all related structures Neck Neck: Yes normal visual inspection Resp Effort & Inspection: normal respiratory effort, able to speak in complete sentences, no tracheal deviation and symmetric chest movement Cardio Jugular venous distension: no JVD Neuro General: patient oriented x3 Gait exam (Neuro): Normal gait present Psych Appearance: grossly normal Mental Status: mental status grossly normal Speech and movement: Normal speech and movement present Affect: normal affect Attitude: cooperative Thought process: Normal thought process present Thought content: Normal thought content present Insight: Good insight present (Psych) Judgement: Good judgement present (Psych) Assessment & Plan Assessment & Plan (1) Colon cancer screening: Code(s): Z12.11 - Encounter for screening for malignant neoplasm of colon Category: Medical Plan: Age-appropriate, no prior colonoscopy or stool-based CRC screening, negative family hx. Medications: -prescriptions for laxative tablets and MiraLax sent to pharmacy; instructions for Gatorade purchase and clear liquid diet given. - understands metformin we will need to be held days prior to procedure. Nurse 2 reviewed hold medications per protocol. Patient educated on scheduling process, procedure preparation, including avoiding certain foods and ensuring clear liquid intake Advised on necessity for ride post-procedure due to sedation. (2) Acid reflux: Code(s): K21.9 - Gastro-esophageal reflux disease without esophagitis Category: Medical Qualifiers: Esophagitis presence: esophagitis presence not specified Qualified Code(s): K21.9 - Gastro-esophageal reflux disease without esophagitis Plan: Chronic, infrequent heartburn, no alarming symptoms (dysphagia, odynophagia, hematemesis, weight loss). Managed with conservative measures and intermittent acid suppression. Additional Testing: EGD to be performed with scheduled colonoscopy for baseline mucosal assessment (given chronicity). Medication Management: - May substitute/favor famotidine (Pepcid) prn for quicker symptom relief. - Continue OTC PPI sparingly; discuss risks/benefits of as needed use. Lifestyle Recommendations: Continue trigger avoidance (alcohol, spicy/fried/fatty foods, carbonation, caffeine, acidic foods), avoid late night eating, elevate head of bed, smaller meals to reduce overeating. Follow-Up: In-office visit post-EGD/colonoscopy to review results and ongoing management. (3) Change in stool: Code(s): R19.5 - Other fecal abnormalities Category: Medical Plan: Clear temporal association between metformin initiation and new onset alternating constipation/diarrhea; stools previously regular. Additional Testing: None indicated presently; monitor for resolution upon medication adjustment. Medication Management: Encourage patient-provider discussion regarding continued need for metformin, as no clear diabetic indication (A1c 5.4%). Hold metformin for colonoscopy as per procedural protocol. Lifestyle Recommendations: Track bowel patterns off metformin. Maintain hydration, fiber intake as tolerated. Follow-Up: Reassess after discontinuation/adjustment of metformin; sooner if persistent or worsening symptoms. Plan Follow-up after endoscopy or sooner as needed Time: I spent a total of 33 minutes on the date of encounter which includes: Preparing to see the patient (reviewed previous documentation, test results and medical history) Performing a medically appropriate exam and/or evaluation Ordering medications, tests, and procedures Documenting clinical information in the health record Orders: Referrals GI Procedure Notification K21.9 - Gastro-esophageal reflux disease without esophagitis, Z12.11 - Encounter for screening for malignant neoplasm of colon Medications: New bisacodyl Take per colonoscopy instructions 5 mg PO ONCE 4 tabs 0RF polyethylene glycol 3350 (Miralax) per colonoscopy prep instructions 238 grams PO ONCE 238 grams 0RF Coding Level of Care Code New Pt New Pt Level 3 (57666) Patient Type New Diagnoses Colon cancer screening Z12.11 Gastroesophageal reflux disease, unspecified whether esophagitis present K21.9 Esophagitis presence: esophagitis presence not specified Change in stool R19.5
[2025-01-17 08:05] VITALS: BP 123/48; PULSE 77; O2SAT 98; BMI 42.2
== END 2025-01-17 08:37 | disposition home or self-care (01) ==
LOC: HO.HGI 07:53
PROVIDERS: PCP Internal Medicine; Visit Provider Nurse Practitioner Family
DX: Z01.818 Encounter for other preprocedural examination (principal); Z12.11 Encounter for screening for malignant neoplasm of colon; R19.5 Other fecal abnormalities; K21.9 Gastro-esophageal reflux disease without esophagitis
CPT/HCPCS: S0285